=== PATIENT | female | born 1955 | race Caucasian/White ===

== ENCOUNTER → 2016-09-11 | Outpatient (CLI) | payer OTHER ==
--- NOTE | 2016-09-12 08:23 | MM ---
Reason for exam: screening (asymptomatic). Last mammogram was performed 1 year and 2 months ago. History: Patient is postmenopausal. 2 excisional biopsies of the left breast. 3 excisional biopsies of the right breast. Took estrogen for 1 month. Physical Findings: A clinical breast exam by your physician is recommended on an annual basis and results should be correlated with mammographic findings. MG Screening Mammo w CAD Bilateral CC and MLO view(s) were taken. Prior study comparison: June 30, 2015, bilateral MG screening mammo w CAD. April 15, 2014, bilateral MG screening mammo w CAD. The breast tissue is heterogeneously dense. This may lower the sensitivity of mammography. Developing asymmetry in the left breast seen on MLO view only middle depth central position. ASSESSMENT: Incomplete: need additional imaging evaluation, BI-RAD 0 RECOMMENDATION: Special view mammogram and ultrasound of the left breast. [facility] will attempt to contact patient to return for supplemental views and ultrasound.
== END | disposition home or self-care (01) ==
LOC: RADMAMWWP 10:02
PROVIDERS: ATTEND Family Medicine
DX: Z12.31 Encounter for screening mammogram for malignant neoplasm of breast (principal)

== ENCOUNTER → 2016-09-21 | Outpatient (CLI) | payer OTHER ==
--- NOTE | 2016-09-21 10:48 | MM ---
Reason for exam: additional evaluation requested from abnormal screening. Last mammogram was performed less than 1 month ago. History: Patient is postmenopausal. 2 excisional biopsies of the left breast. 3 excisional biopsies of the right breast. Took estrogen for 1 month. Physical Findings: Nurse did not find any significant physical abnormalities on exam. MG 3D Work Up W/Cad LT ML and spot compression MLO view(s) were taken of the left breast. Prior study comparison: September 11, 2016, bilateral MG screening mammo w CAD. June 30, 2015, bilateral MG screening mammo w CAD. No discrete abnormality including area of concern. No significant new findings when compared with previous films. These results were verbally communicated with the patient and result sheet given to the patient on 09/21/16. ASSESSMENT: Benign, BI-RAD 2 RECOMMENDATION: Return to routine screening mammogram schedule for both breasts.
== END ==
LOC: RADMAMWWP 09:53
PROVIDERS: ATTEND Family Medicine
DX: R92.8 Other abnormal and inconclusive findings on diagnostic imaging of breast (principal)
CPT/HCPCS: G0206; G0279

== ENCOUNTER → 2017-02-27 | Outpatient (CLI) | payer OTHER ==
[2017-02-27 08:26] LABS: ALT 28 U/L (9-52); AST 19 U/L (14-36); Alkaline Phosphatase 56 U/L (38-126); Anion Gap 11 mmol/L; Blood Urea Nitrogen 22 mg/dL (7-17); Calcium 9.4 mg/dL (8.4-10.2); Carbon Dioxide 28 mmol/L (22-30); Chloride 103 mmol/L (98-107); Cholesterol 138 mg/dL (<200); Glucose 99 mg/dL (74-99); HDL Cholesterol 58 mg/dL (40-60); Non-African American GFR(MDRD) >60 (>60 ml/min/1.73 sqM); Potassium 4.4 mmol/L (3.5-5.1); Sodium 142 mmol/L (137-145); Total Bilirubin 0.6 mg/dL (0.2-1.3); Total Protein 7.1 g/dL (6.3-8.2); Triglycerides 55 mg/dL (<150)
[2017-02-27 17:04] LABS: Urine Creatinine 78.5 mg/dL
== END | disposition home or self-care (01) ==
LOC: LABWHC1 06:55
PROVIDERS: ATTEND Internal Medicine Endocrinology, Diabetes & Metabolism
DX: E11.65 Type 2 diabetes mellitus with hyperglycemia (principal)
CPT/HCPCS: 36415; 80053; 80061; 82043; 82570; 83036

== ENCOUNTER → 2018-05-22 | Outpatient (CLI) | payer MEDICARE, OTHER ==
[2018-05-22 18:02] LABS: Albumin 4.1 g/dL (3.80-4.90); Albumin/Globulin Ratio 1.64 (1.20-2.10); Anion Gap 4.6 mmol/L (4.00-12.00); Calcium 8.9 mg/dL (8.7-10.3); Carbon Dioxide 28.4 mmol/L (21.6-31.8); Globulin 2.5 g/dL (2.1-3.7); LDL Cholesterol,Calculated 66.8 mg/dL (0.0-131.0); Potassium 4.1 mmol/L (3.5-5.5); Total Bilirubin 0.6 mg/dL (0.2-1.2); Total Protein 6.6 g/dL (6.2-8.2); VLDL Calculation 10.2 mg/dL (5.00-40.00)
[2018-05-22 19:12] LABS: Hemoglobin A1C 6.4 % (4.0-6.0)
== END | disposition home or self-care (01) ==
LOC: LABWHC1 06:42
PROVIDERS: ATTEND Internal Medicine Endocrinology, Diabetes & Metabolism
DX: E11.65 Type 2 diabetes mellitus with hyperglycemia (principal)
CPT/HCPCS: 36415; 80053; 80061; 82043; 82570; 83036

== ENCOUNTER → 2018-06-03 | Outpatient (CLI) | payer MEDICARE, OTHER ==
--- NOTE | 2018-06-03 14:46 | BD ---
EXAMINATION TYPE: Axial Bone Density DATE OF EXAM: 06/03/2018 COMPARISON: 04.03.2013 CLINICAL HISTORY: 63 YR OLD FEMALE....ICD-10 CODE: M81.0 OSTEOPOROSIS Height: 63.2 Weight: 136 FRAX RISK QUESTIONS: Family History (Parent hip fracture): YES Glucocorticoids (More than 3mos): YES Secondary Osteoporosis: YES 3. Menopause before 45: YES, AT 30 YRS OLD RISK FACTORS HISTORY OF: Family History of Osteoporosis: YES, GREAT GRANDMOTHER WITH BROKEN HIPS Active: YES Diet low in dairy products/other sources of calcium: YES Postmenopausal woman: YES, AT AGE 30, TOTAL HYST If Premenopausal, do you have irregular periods: IN THE PAST FOR FEW YRS ONLY MEDICATIONS: Prednisone or other steroids: YES, FOR ECZEMA, How Long: YRS Osteoporosis Medications: FOSAMAX IN THE PAST ONLY, LAST TAKEN IN 1993 Additional Medications: BP MEDS, VIT D, NO ORAL DIABETIC MEDS SINCE AUG 2017, CHOLESTEROL MEDS IN PAS T ONLY Additional History: DIABETIC, DIET ONLY EXAM MEASUREMENTS: Bone mineral densitometry was performed using the [employer] System. Bone mineral density as measured about the Lumbar spine is: ----- L1-L4(G/cm2): 0.862 T Score Values are as follows: ----- L1: -2.7 ----- L2: -2.7 ----- L3: -2.6 ----- L4: -2.7 ----- L1-L4: -2.6 Bone mineral density has: Decreased -7.3% since study of: 04.03.2013 Bone mineral density about the R hip (g/cm2): 0.771 Bone mineral density about the L hip (g/cm2): 0.769 T Score values are as follows: -----R Neck: -2.2 -----L Neck: -2.0 -----R Total: -1.9 -----L Total: -1.9 Bone mineral density has: Decreased -8.8% since study of: 04.03.2013 FRAX%s: THERE IS A 31.8% CHANCE FOR A MAJOR OSTEOPOROTIC FX AND A 4.0% FOR HIP FX.....PROBABILITY OF FX IN 10 YRS TIME IMPRESSION: 1. Osteoporosis lumbar spine. 2. Osteopenia of the bilateral femoral. NOTE: T-SCORE=SD OF THE YOUNG ADULT MEAN.
== END | disposition home or self-care (01) ==
LOC: RADBDWWP 09:54
PROVIDERS: ATTEND Internal Medicine Endocrinology, Diabetes & Metabolism
DX: M81.0 Age-related osteoporosis without current pathological fracture (principal); M85.851 Other specified disorders of bone density and structure, right thigh; M85.852 Other specified disorders of bone density and structure, left thigh
CPT/HCPCS: 77080

== ENCOUNTER → 2018-11-30 | Outpatient (CLI) | payer MEDICARE, OTHER ==
[2018-11-30 17:19] LABS: Albumin 4.2 g/dL (3.80-4.90); Anion Gap 8.2 mmol/L (4.00-12.00); Calcium 9.4 mg/dL (8.7-10.3); Carbon Dioxide 25.8 mmol/L (21.6-31.8); Globulin 2.1 g/dL (1.6-3.3); LDL Cholesterol,Calculated 84.6 mg/dL (0.0-131.0); Potassium 4.2 mmol/L (3.5-5.5); Total Bilirubin 0.6 mg/dL (0.2-1.2); Total Protein 6.3 g/dL (6.2-8.2); VLDL Calculation 13.4 mg/dL (5.00-40.00)
[2018-11-30 18:29] LABS: Hemoglobin A1C 6.4 % (4.0-6.0)
== END | disposition home or self-care (01) ==
LOC: LABWHC1 08:19
PROVIDERS: ATTEND Internal Medicine Endocrinology, Diabetes & Metabolism
DX: E11.9 Type 2 diabetes mellitus without complications (principal)
CPT/HCPCS: 36415; 80053; 80061; 82043; 82570; 83036; 84443

== ENCOUNTER → 2018-12-19 | Outpatient (CLI) | payer MEDICARE, OTHER ==
[~2018-12-19] MED LIST: DENOSUMAB 60 MG/ML 1 ML SYRINGE SQ ONE
[2018-12-19 12:59] VITALS: BP 148/75; PULSE 59; RESP 16; TEMP 97.8
== END | disposition home or self-care (01) ==
LOC: PROCWHC3 12:42
PROVIDERS: ATTEND Internal Medicine Endocrinology, Diabetes & Metabolism
DX: M81.0 Age-related osteoporosis without current pathological fracture (principal)
CPT/HCPCS: 96372; J0897

== ENCOUNTER → 2019-05-16 | Outpatient (CLI) | payer MEDICARE, OTHER ==
[2019-05-16 11:41] LABS: Albumin 4.4 g/dL (3.80-4.90); Anion Gap 6.6 mmol/L (4.00-12.00); Calcium 9.8 mg/dL (8.7-10.3); Carbon Dioxide 29.4 mmol/L (21.6-31.8); Chol/HDL Ratio 2.54; Globulin 2.2 g/dL (1.6-3.3); Total Bilirubin 0.6 mg/dL (0.3-1.2); Total Protein 6.6 g/dL (6.2-8.2)
[2019-05-16 12:53] LABS: Hemoglobin A1C 6.7 % (4.0-6.0)
== END | disposition home or self-care (01) ==
LOC: LABWHC1 06:37
PROVIDERS: ATTEND Internal Medicine Endocrinology, Diabetes & Metabolism
DX: E11.9 Type 2 diabetes mellitus without complications (principal)
CPT/HCPCS: 36415; 80053; 80061; 82043; 82570; 83036; 84443

== ENCOUNTER → 2019-07-08 | Outpatient (CLI) | payer MEDICARE, OTHER ==
[~2019-07-08] MED LIST changes: +DENOSUMAB 60 MG/ML 1 ML SYRINGE SQ NR; -DENOSUMAB 60 MG/ML 1 ML SYRINGE SQ ONE
[2019-07-08 11:36] VITALS: BP 123/60; PULSE 51; RESP 16; TEMP 98.2
== END ==
LOC: PROCWHC3 11:17
PROVIDERS: ATTEND Internal Medicine Endocrinology, Diabetes & Metabolism
DX: M81.0 Age-related osteoporosis without current pathological fracture (principal)
CPT/HCPCS: 96372; J0897

== ENCOUNTER → 2020-05-11 | Outpatient (CLI) | payer MEDICARE, OTHER ==
[2020-05-11 18:48] LABS: Hemoglobin A1C 6.9 % (4.0-6.0)
[2020-05-11 20:23] LABS: African American GFR (CKD) 88.4 (60.0-200.0); Albumin 4.2 g/dL (3.80-4.90); Albumin/Globulin Ratio 1.62 (1.60-3.17); Anion Gap 9.2 mmol/L (4.00-12.00); BUN/Creat Ratio 17.5 Ratio (12.00-20.00); Calcium 9.9 mg/dL (8.7-10.3); Carbon Dioxide 28.8 mmol/L (21.6-31.8); Chol/HDL Ratio 3.12; Globulin 2.6 g/dL (1.6-3.3); LDL Cholesterol,Calculated 92.4 mg/dL (0.0-131.0); Non-African American GFR(CKD) 76.3 (60.0-200.0); Potassium 4.1 mmol/L (3.5-5.5); Total Bilirubin 0.7 mg/dL (0.2-1.2); Total Protein 6.8 g/dL (6.2-8.2); VLDL Calculation 15.6 mg/dL (5.00-40.00)
[2020-05-11 21:43] LABS: Urine Creatinine 63.9 mg/dL
== END | disposition home or self-care (01) ==
LOC: LABWHC1 07:57
PROVIDERS: ATTEND Internal Medicine Endocrinology, Diabetes & Metabolism
DX: E11.9 Type 2 diabetes mellitus without complications (principal)
CPT/HCPCS: 36415; 80053; 80061; 82043; 82570; 83036; 84443

== ENCOUNTER → 2020-05-28 | Outpatient (CLI) | payer MEDICARE, OTHER ==
[2020-05-28 08:34] LABS: African American GFR (CKD) >90 (>60 ml/min/1.73 sqM); Blood Urea Nitrogen 20 mg/dL (7-17); Non-African American GFR(CKD) >90 (>60 ml/min/1.73 sqM)
--- NOTE | 2020-05-28 10:48 | FL ---
EXAMINATION TYPE: FL barium swallow DATE OF EXAM: 05/28/2020 CLINICAL HISTORY: Dysphagia. Constant throat clearing with irritation. TECHNIQUE: A double contrast esophagram is performed utilizing air and barium. A total of 22 second s of fluoroscopic time was utilized during procedure and 47 images obtained COMPARISON: CT neck performed earlier today FINDINGS: The esophagus shows normal motility and emptying into the stomach. Small sliding-type hiata l hernia present of study. No fixed hernia. No diverticulum. No intraluminal mass or stricture. No si gnificant gastroesophageal reflux was seen during real time performance of this study. Contrast from recent CT seen in collecting systems during real-time performance. IMPRESSION: Small sliding-type hiatal hernia otherwise unremarkable study.
--- NOTE | 2020-05-28 13:15 | CT ---
EXAMINATION TYPE: CT soft tissue neck w con DATE OF EXAM: 05/28/2020 9:22 AM COMPARISON: None HISTORY: Pain in throat, dysphagia Automated exposure control for dose reduction was used. CONTRAST: CT scan of neck is performed following with IV Contrast, patient injected with 100 mL of Isovue 300. Axial images are obtained, coronal and sagittal reformatted images are reviewed. FINDINGS: Airway: No gross abnormality seen. Parotid/submandibular glands: No gross abnormality seen. Carotid/Vascular Structures: Patent. Osseous Structures: Degenerative changes of the cervical spine. Other: Emphysematous changes of the lung apices. Visualized mastoid air cells are clear. No cervical lymphadenopathy. No focal fluid collections. Homogenous appearance of the thyroid gland. IMPRESSION: No evidence of airway narrowing or focal fluid collection.
== END | disposition home or self-care (01) ==
LOC: RADCTMAIN 07:54
PROVIDERS: ATTEND Otolaryngology
DX: K44.9 Diaphragmatic hernia without obstruction or gangrene (principal); R07.0 Pain in throat; R13.14 Dysphagia, pharyngoesophageal phase
CPT/HCPCS: 82565; 84520; 74220; 70491; 36415; Q9967

== ENCOUNTER → 2020-06-22 | Outpatient (CLI) | payer MEDICARE, OTHER ==
--- NOTE | 2020-06-22 18:15 | BD ---
EXAMINATION TYPE: Axial Bone Density DATE OF EXAM: 06/22/2020 COMPARISON: 06/03/2018 CLINICAL HISTORY: Postmenopausal screening Height: 5 FT 4IN Weight: 136 FRAX RISK QUESTIONS: Alcohol (3 or more units per day): NO Family History (Parent hip fracture): NO Glucocorticoids (More than 3mos): STEROID OINTMENT FOR ECZEMA (Ex: prednisone, prednisolone, methylprednisolone, dexamethasone, and hydrocortisone). History of Fracture in Adulthood: NO Secondary Osteoporosis: 1. Type 1 Diabetes: NO 2. Hyperthyroidism: NO 3. Menopause before 45: YES 4. Malnutrition: NO 5. Chronic liver disease: NO Rheumatoid Arthritis: NO Current Tobacco Use: NO RISK FACTORS HISTORY OF: Family History of Osteoporosis: YES Active: YES Diet low in dairy products/other sources of calcium: NO Postmenopausal woman: TOTAL HYST AGE 30 Take estrogen and/or progesterone medications: TOOK FOR THREE YEARS AFTER HYST NO LONGER TAKES Lost more than 2 inches in height since high school: NO MEDICATIONS: Additional Medications: LOSARTIN, WATER PILL Additional History: EXAM MEASUREMENTS: Bone mineral densitometry was performed using the [employer] System. Bone mineral density as measured about the Lumbar spine is: ----- L1-L4(G/cm2): 0.888 T Score Values are as follows: ----- L2: -2.8 ----- L3: -2.5 ----- L4: -1.8 ----- L1-L4: -2.4 Bone mineral density has: INCREASED 4.9 % since study of: 2017 Bone mineral density about the R hip (g/cm2): 0.745 Bone mineral density about the L hip (g/cm2): 0.748 T Score values are as follows: -----R Neck: -2.1 -----L Neck: -2.1 -----R Total: -1.8 -----L Total: -1.7 Bone mineral density has: INCREASED 2.1 % since study of: 2018 IMPRESSION: Osteoporosis (T Score less than -2.5). There is increased fracture risk and therapy is usually indicated based on age. Re-Screen 1-2 years. NOTE: T-SCORE=SD OF THE YOUNG ADULT MEAN.
== END | disposition home or self-care (01) ==
LOC: RADBDWWP 15:37
PROVIDERS: ATTEND Internal Medicine Endocrinology, Diabetes & Metabolism
DX: M81.0 Age-related osteoporosis without current pathological fracture (principal)
CPT/HCPCS: 77080

== ENCOUNTER → 2020-07-15 | Outpatient (CLI) | payer MEDICARE, OTHER ==
[2020-07-15 08:35] VITALS: BP 144/55; PULSE 58; RESP 16; TEMP 97.6
== END ==
LOC: PROCWHC3 08:24
PROVIDERS: ATTEND Internal Medicine Endocrinology, Diabetes & Metabolism
DX: M81.0 Age-related osteoporosis without current pathological fracture (principal)
CPT/HCPCS: 96372; J0897

== ENCOUNTER → 2020-08-25 | Outpatient (CLI) | payer MEDICARE, OTHER ==
--- NOTE | 2020-08-25 10:02 | CTL ---
EXAMINATION TYPE: CT Low Dose Lung DATE OF EXAM ORDERED: 08/25/2020 HISTORY: Long-term tobacco use. Lung cancer screening CT DLP: [address] CTDI: 1.76 mGy Automated exposure control for dose reduction was used. SCREENING VISIT: Initial study COMPARISON: None. TECHNIQUE: Low dose computed tomography scan was performed through the chest at 1 mm thick sections a nd reconstructed images in the coronal plane at [address] DIAGNOSTIC QUALITY: Satisfactory FINDINGS: LUNG NODULES: Present, detailed below: There is 3.3 x 2.0 cm inferior right upper lobe nodule abutting fissure axial image 156. There is a 8.4 x 4.5 cm nodule or nodular scarring right lower lobe axial image 170 LUNGS: COPD: Severity: Moderate Fibrosis: Severity: Mild Lymph nodes: No greater than 1 cm Other findings: None RIGHT PLEURAL SPACE: Effusion: None Calcification: None Thickening: None Pneumothorax: None LEFT PLEURAL SPACE: Effusion: None Calcification: None Thickening: None Pneumothorax: None HEART: Heart Size: Normal Coronary calcification: Mild to moderate Pericardial effusion: None. OTHER FINDINGS: Upper abdomen: There is large anechoic lesion laterally from upper pole right kidney favoring exophyt ic thin-walled cyst only partially imaged, correlate clinically. Bony thorax: Mild multilevel spurring. Supraclavicular region: None Other: None. IMPRESSION: Moderate emphysematous change. Few scattered small nodules. Most concerning is 8.4 x 4.5 mm right lower lobe nodule CT LUNG RAD AND CT CHEST RECOMMENDATION: Lung-Rad 3 Probably Benign: 6 month follow-up LDCT. S Modifier (other clinically significant findings): None
--- NOTE | 2020-08-25 10:47 | ECHOF ---
Referral Reason:I20.9 Angina pectoris, unspecified MEASUREMENTS -------- HEIGHT: 162.6 cm WEIGHT: 61.7 kg BP: RVIDd: 2.8 cm (< 3.3) IVSd: 0.9 cm (0.6 - 1.1) LVIDd: 4.5 cm (3.9 - 5.3) LVPWd: 1.1 cm (0.6 - 1.1) IVSs: 1.6 cm LVIDs: 2.8 cm LVPWs: 1.5 cm LAESV Index (A-L): 18.12 ml/m Ao Diam: 2.8 cm (2.0 - 3.7) AV Cusp: 1.9 cm (1.5 - 2.6) LA Diam: 3.3 cm (2.7 - 3.8) MV EXCURSION: 18.742 mm (> 18.000) MV EF SLOPE: 57 mm/s (70 - 150) EPSS: 0.8 cm MV E Guevara: 0.49 m/s MV DecT: 244 ms MV A Guevara: 0.92 m/s MV E/A Ratio: 0.53 AR PHT: 666 ms RAP: 5.00 mmHg RVSP: 24.47 mmHg FINDINGS -------- Sinus rhythm. This was a technically adequate study. The left ventricular size is normal. Left ventricular wall thickness is normal. Overall left vent ricular systolic function is low-normal with, an EF between 50 - 55 %. Normal LAP Grade 1 Diastolic Dysfunction. Basal inferior LV wall motion is hypokinetic. The right ventricle is normal in size. Normal LA size by volume 22+/-6 ml/m2. The right atrial size is normal. Interatrial and interventricular septum intact. The aortic valve is trileaflet and appears structurally normal. Trace amount of aortic regurgitatio n. The mitral valve is normal. Mild mitral regurgitation is present. The tricuspid valve appears structurally normal. Mild tricuspid regurgitation present. Right vent ricular systolic pressure is normal at < 35 mmHg. There is no pulmonic regurgitation present. The aortic root size is normal. Normal inferior vena cava with normal inspiratory collapse consistent with estimated right atrial pre ssure of 5 mmHg. There is no pericardial effusion. CONCLUSIONS -------- 1. Left ventricular wall thickness is normal. 2. Overall left ventricular systolic function is low-normal with, an EF between 50 - 55 %. 3. Normal LAP Grade 1 Diastolic Dysfunction. 4. Basal inferior LV wall motion is hypokinetic. 5. Trace amount of aortic regurgitation. 6. Mild mitral regurgitation is present. 7. Mild tricuspid regurgitation present. 8. There is no pericardial effusion. ORTHOPTIST: Shelby Hassan RDCS
--- NOTE | 2020-08-25 13:16 | EST ---
EXERCISE STRESS AGE: 65 SEX: Female HT: 5'4" WT: 136 lbs. PROTOCOL: Exercise Stress Test STAGE: 3 DURATION OF EXERCISE: 8:00 HEART RATE REST: 67 BLOOD PRESSURE REST: 153/78 MAXIMUM HEART RATE ACHIEVED: 138 MAXIMUM BLOOD PRESSURE: 217/84 85% MPHR: 130 100% MPHR: 153 METS: 9.7 INDICATIONS: Angina Pectoris CLINICAL INFORMATION: Baseline rhythm is sinus mechanism, rate of 67, normal axis and intervals, occasional PVCs with nonspecific ST-T wave changes. Baseline blood pressure 153/78 mmHg. Patient exercised on Fabricio protocol for 8 minutes reaching peak rate 138 beats per minute which is equal to 90% maximum predicted heart rate. Peak blood pressure 217/84 mmHg. Test was terminated secondary to fatigue. There was no chest pain. Electrocardiograph monitoring revealed frequent single PVCs. There was no evidence of diagnostic ischemic ST deviation. CONCLUSION: 1. Average exercise tolerance with no symptoms of chest pain. 2. Frequent single PVCs. 3. Nondiagnostic electrocardiograph stress testing secondary to baseline EKG abnormality. 4. If clinically indicated, an imaging stress test will be helpful. MMODL / IJN: [id number] /
== END | disposition home or self-care (01) ==
LOC: RADCTMAIN 08:18
PROVIDERS: ATTEND Family Medicine
DX: Z12.2 Encounter for screening for malignant neoplasm of respiratory organs (principal); R91.1 Solitary pulmonary nodule; Z87.891 Personal history of nicotine dependence; I49.3 Ventricular premature depolarization; I20.9 Angina pectoris, unspecified; I08.3 Combined rheumatic disorders of mitral, aortic and tricuspid valves
CPT/HCPCS: 71271; 93017; 93306

== ENCOUNTER → 2020-12-01 | Outpatient (CLI) | payer MEDICARE, OTHER ==
[2020-12-01 19:00] LABS: Hemoglobin A1C 7.2 % (4.0-6.0)
[2020-12-02 00:46] LABS: African American GFR (CKD) 76.7 (60.0-200.0); Albumin 4.3 g/dL (3.80-4.90); Albumin/Globulin Ratio 1.79 (1.60-3.17); Anion Gap 12.6 mmol/L (4.00-12.00); BUN/Creat Ratio 18.89 Ratio (12.00-20.00); Calcium 9.4 mg/dL (8.7-10.3); Carbon Dioxide 25.4 mmol/L (21.6-31.8); Chol/HDL Ratio 3.34; Globulin 2.4 g/dL (1.6-3.3); LDL Cholesterol,Calculated 95.4 mg/dL (0.0-131.0); Non-African American GFR(CKD) 66.2 (60.0-200.0); Total Bilirubin 0.8 mg/dL (0.2-1.2); Total Protein 6.7 g/dL (6.2-8.2); VLDL Calculation 14.6 mg/dL (5.00-40.00)
[2020-12-02 03:41] LABS: Urine Creatinine 108.5 mg/dL
== END | disposition home or self-care (01) ==
LOC: LABWHC1 07:20
PROVIDERS: ATTEND Internal Medicine Endocrinology, Diabetes & Metabolism
DX: E11.9 Type 2 diabetes mellitus without complications (principal)
CPT/HCPCS: 36415; 80053; 80061; 82043; 82570; 83036; 84443

== ENCOUNTER 2020-12-02 07:33 | Emergency (ER) | payer MEDICARE, OTHER ==
[2020-12-02 07:41] VITALS: TEMP 97.7
[2020-12-02 08:49] LABS: Basophils # (A) 0.1 k/uL (0-0.2); Basophils % (A) 1 %; Eosinophils # (A) 0.3 k/uL (0-0.7); Eosinophils % (A) 3 %; HCT 40.6 % (34.0-46.0); HGB 14.2 gm/dL (11.4-16.0); Lymphocytes # (A) 2.3 k/uL (1.0-4.8); Lymphocytes % (A) 31 %; MCV 85.7 fL (80.0-100.0); Mean Platelet Volume 7.2; Monocytes # (A) 0.6 k/uL (0-1.0); Monocytes % (A) 7 %; Neutrophils # (A) 4.1 k/uL (1.3-7.7); Neutrophils % (A) 55 %; Platelet Count 237 k/uL (150-450); RBC 4.73 m/uL (3.80-5.40); RDW 12.5 % (11.5-15.5); WBC 7.4 k/uL (3.8-10.6)
--- NOTE | 2020-12-02 08:50 | ED ---
General Adult HPI - General Chief complaint: Arrhythmia/Palpitations Stated complaint: Low Heart Rate Time Seen by Provider: 12/02/20 07:35 Source: patient, RN notes reviewed, old records reviewed Mode of arrival: ambulatory Limitations: no limitations - History of Present Illness Initial comments: This is a 65-year-old female presents emergency department coming in because her heart rate was very slow. Patient states she's been put on metoprolol for extra heartbeat ever since her heart rate is been extremely slow. Patient states she reduced it to half the dose in the morning and half at night and she woke up today and her heart rate was in the 30s and she came to the emergency department. Patient states she has been lightheaded but had no chest pain or difficulty breathing per patient denies any fever chills or cough. Patient denies any abdominal pain patient denies nausea vomiting diarrhea. Patient denies any swelling to legs or calf tenderness. - Related Data Home Medications Medication Instructions Recorded Confirmed Aspirin 81 tab PO HS 11/20/14 12/02/20 Cetirizine HCl [Zyrtec] 10 mg PO HS 11/20/14 12/02/20 Calcium Carbonate [Calcium] 1,200 mg PO HS 07/15/20 12/02/20 Cholecalciferol [Vitamin D3 (25 50 mcg PO DAILY 12/02/20 12/02/20 Mcg = 1000 Iu)] Hydrochlorothiazide 12.5 mg PO DAILY 12/02/20 12/02/20 [hydroCHLOROthiazide] Losartan Potassium 50 mg PO DAILY 12/02/20 12/02/20 Metoprolol Tartrate [Lopressor] 12.5 mg PO BID 12/02/20 12/02/20 Prolia Injection 1 dose SQ Q180D 12/02/20 12/02/20 Allergies Allergy/AdvReac Type Severity Reaction Status Date / Time adhesive Allergy Itching, Verified 12/02/20 08:27 RASH Review of Systems ROS Statement: Those systems with pertinent positive or pertinent negative responses have been documented in the HPI. ROS Other: All systems not noted in ROS Statement are negative. Past Medical History Past Medical History: Diabetes Mellitus, GI Bleed, Hypertension Additional Past Medical History / Comment(s): BLOOD IN STOOL/RECTUM. per old hx- anemia, migraines uti, PAST HIGER CHOLESTEROL BUT SINCE WATHED DIET NO LONGER HAS BEEN A PROBLEM. History of Any Multi-Drug Resistant Organisms: None Reported Past Surgical History: Adenoidectomy, Appendectomy, Heart Catheterization, Hysterectomy, Orthopedic Surgery, Tonsillectomy Additional Past Surgical History / Comment(s): OVARIAN CYSTS/endometreosis- hysterectomy. , ELBOW SURG for tendonitis, 2 TRIGGER FINGERS.colonoscopy. egd- NEG, rt carpal tunnel release, katelyn breast biopsies-NEG, d&c, heart cath 09-07-10 normal with ef. 60%.CYSTOCELE REPAIR. LATEST COLONOSCOPY APPROX 1.5 MONTHS AGO SHOWED PROCTITIS. Past Anesthesia/Blood Transfusion Reactions: Postoperative Nausea & Vomiting (PONV) Past Psychological History: No Psychological Hx Reported Smoking Status: Former smoker Past Alcohol Use History: None Reported Past Drug Use History: None Reported - Past Family History Mother Family Medical History: Dementia Additional Family Medical History / Comment(s): ALZHEIMERS Father Family Medical History: Diabetes Mellitus, Myocardial Infarction ([place]), Renal Disease General Exam - General Exam Comments Initial Comments: GENERAL: Patient is well-developed and well-nourished. Patient is nontoxic and well- hydrated and is in no acute distress. ENT: Neck is soft and supple. No significant lymphadenopathy is noted. Oropharynx is clear. Moist mucous membranes. Neck has full range of motion without eliciting any pain. EYES: The sclera were anicteric and conjunctiva were pink and moist. Extraocular movements were intact and pupils were equal round and reactive to light. Eyelids were unremarkable. PULMONARY: Unlabored respirations. Good breath sounds bilaterally. No audible rales rhonchi or wheezing was noted. CARDIOVASCULAR: Patient's heart rate is at about 40 beats a minute ABDOMEN: Soft and nontender with normal bowel sounds. No palpable organomegaly was noted. There is no palpable pulsatile mass. SKIN: Skin is clear with no lesions or rashes and otherwise unremarkable. NEUROLOGIC: Patient is alert and oriented x3. Cranial nerves II through XII are grossly intact. Motor and sensory are also intact. Normal speech, volume and content. Symmetrical smile. MUSCULOSKELETAL: Normal extremities with adequate strength and full range of motion. No lower extremity swelling or edema. No calf tenderness. LYMPHATICS: No significant lymphadenopathy is noted PSYCHIATRIC: Normal psychiatric evaluation. Limitations: no limitations Course Vital Signs 12/02/20 07:34 Temperature 97.7 F Pulse Rate 45 L Respiratory 18 Rate Blood Pressure 148/60 O2 Sat by Pulse 98 Oximetry Medical Decision Making - Medical Decision Making EKG shows sinus bradycardia at 30 bpm ID interval 164 QRS is 92 QT interval 470 QTC is 373. Patient's EKG shows no ST segment elevation or depression Chest x-ray shows no acute abnormality. Patient was asymptomatic throughout her ED stay. I spoke with Dr. Gregorio he was in agreement to follow-up the patient is an outpat ient patient and were also in agreement with this. Patient states when she came off the beta maribel the past her heart rate came right back up again the day so she was comfortable going home at this time and taking it easy. - Lab Data Result diagrams: 12/02/20 08:35 12/02/20 08:35 Lab Results 12/02/20 12/02/20 12/02/20 Range/Units 08:35 08:35 08:35 WBC 7.4 (3.8-10.6) k/uL RBC 4.73 (3.80-5.40) m/uL Hgb 14.2 (11.4-16.0) gm/dL Hct 40.6 (34.0-46.0) % MCV 85.7 (80.0-100.0) fL MCH 30.0 (25.0-35.0) pg MCHC 35.0 (31.0-37.0) g/dL RDW 12.5 (11.5-15.5) % Plt Count 237 (150-450) k/uL MPV 7.2 Neutrophils % 55 % Lymphocytes % 31 % Monocytes % 7 % Eosinophils % 3 % Basophils % 1 % Neutrophils # 4.1 (1.3-7.7) k/uL Lymphocytes # 2.3 (1.0-4.8) k/uL Monocytes # 0.6 (0-1.0) k/uL Eosinophils # 0.3 (0-0.7) k/uL Basophils # 0.1 (0-0.2) k/uL PT 10.4 (9.0-12.0) sec INR 1.0 (<1.2) APTT 22.3 (22.0-30.0) sec Sodium 138 (137-145) mmol/L Potassium 3.8 (3.5-5.1) mmol/L Chloride 103 (98-107) mmol/L Carbon Dioxide 26 (22-30) mmol/L Anion Gap 9 mmol/L BUN 19 H (7-17) mg/dL Creatinine 0.63 (0.52-1.04) mg/dL Est GFR (CKD-EPI)AfAm >90 (>60 ml/min/1.73 sqM) Est GFR (CKD-EPI)NonAf >90 (>60 ml/min/1.73 sqM) Glucose 147 H (74-99) mg/dL Calcium 9.5 (8.4-10.2) mg/dL Magnesium 1.8 (1.6-2.3) mg/dL Total Bilirubin 0.7 (0.2-1.3) mg/dL AST 19 (14-36) U/L ALT 13 (4-34) U/L Alkaline Phosphatase 41 (38-126) U/L Troponin I (0.000-0.034) ng/mL Total Protein 7.1 (6.3-8.2) g/dL Albumin 4.1 (3.5-5.0) g/dL TSH 1.080 (0.465-4.680) mIU/L 12/02/20 Range/Units 08:35 WBC (3.8-10.6) k/uL RBC (3.80-5.40) m/uL Hgb (11.4-16.0) gm/dL Hct (34.0-46.0) % MCV (80.0-100.0) fL MCH (25.0-35.0) pg MCHC (31.0-37.0) g/dL RDW (11.5-15.5) % Plt Count (150-450) k/uL MPV Neutrophils % % Lymphocytes % % Monocytes % % Eosinophils % % Basophils % % Neutrophils # (1.3-7.7) k/uL Lymphocytes # (1.0-4.8) k/uL Monocytes # (0-1.0) k/uL Eosinophils # (0-0.7) k/uL Basophils # (0-0.2) k/uL PT (9.0-12.0) sec INR (<1.2) APTT (22.0-30.0) sec Sodium (137-145) mmol/L Potassium (3.5-5.1) mmol/L Chloride (98-107) mmol/L Carbon Dioxide (22-30) mmol/L Anion Gap mmol/L BUN (7-17) mg/dL Creatinine (0.52-1.04) mg/dL Est GFR (CKD-EPI)AfAm (>60 ml/min/1.73 sqM) Est GFR (CKD-EPI)NonAf (>60 ml/min/1.73 sqM) Glucose (74-99) mg/dL Calcium (8.4-10.2) mg/dL Magnesium (1.6-2.3) mg/dL Total Bilirubin (0.2-1.3) mg/dL AST (14-36) U/L ALT (4-34) U/L Alkaline Phosphatase (38-126) U/L Troponin I <0.012 (0.000-0.034) ng/mL Total Protein (6.3-8.2) g/dL Albumin (3.5-5.0) g/dL TSH (0.465-4.680) mIU/L Disposition Clinical Impression: Sinus bradycardia, Medication reaction Disposition: HOME SELF-CARE Is patient prescribed a controlled substance at d/c from ED?: No Referrals: Patrick Gregorio DO [Primary Care Provider] - 1-2 days Time of Disposition: 09:49
--- NOTE | 2020-12-02 08:58 | XR ---
EXAMINATION TYPE: XR chest 2V DATE OF EXAM: 12/02/2020 COMPARISON: Chest x-ray January 27, 2015 HISTORY: Dysrhythmia. TECHNIQUE: Frontal and lateral views of the chest are obtained. FINDINGS: There is chronic parenchymal change without suspicious new focal air space opacity, pleura l effusion, or pneumothorax seen. The cardiac silhouette size is stable and within normal limits wit h atherosclerotic change aortic knob. The osseous structures are intact. IMPRESSION: Chronic changes without acute pulmonary process. No significant change from prior.
[2020-12-02 09:03] LABS: ALT 13 U/L (4-34); AST 19 U/L (14-36); African American GFR (CKD) >90 (>60 ml/min/1.73 sqM); Albumin 4.1 g/dL (3.5-5.0); Alkaline Phosphatase 41 U/L (38-126); Anion Gap 9 mmol/L; Blood Urea Nitrogen 19 mg/dL (7-17); Calcium 9.5 mg/dL (8.4-10.2); Carbon Dioxide 26 mmol/L (22-30); Chloride 103 mmol/L (98-107); Glucose 147 mg/dL (74-99); Magnesium 1.8 mg/dL (1.6-2.3); Non-African American GFR(CKD) >90 (>60 ml/min/1.73 sqM); Potassium 3.8 mmol/L (3.5-5.1); Sodium 138 mmol/L (137-145); Total Bilirubin 0.7 mg/dL (0.2-1.3); Total Protein 7.1 g/dL (6.3-8.2)
[2020-12-02 09:09] LABS: Partial Thromboplastin Time 22.3 sec (22.0-30.0); Prothrombin Time 10.4 sec (9.0-12.0)
[2020-12-02 10:24] VITALS: BP 128/68; PULSE 51; RESP 12
== END 2020-12-02 10:24 | disposition home or self-care (01) ==
LOC: EC 07:33
DX: R00.1 Bradycardia, unspecified (principal); T50.905A Adverse effect of unspecified drugs, medicaments and biological substances, initial encounter; I10 Essential (primary) hypertension; E11.9 Type 2 diabetes mellitus without complications; G43.909 Migraine, unspecified, not intractable, without status migrainosus; Z87.891 Personal history of nicotine dependence; Z79.82 Long term (current) use of aspirin
CPT/HCPCS: 36415; 71046; 80053; 83735; 84443; 84484; 85025; 85610; 85730; 93005; 99284

== ENCOUNTER → 2021-01-18 | Outpatient (CLI) | payer MEDICARE, OTHER ==
[2021-01-18 08:15] VITALS: BP 143/72; PULSE 52; RESP 16; TEMP 97.6
== END | disposition home or self-care (01) ==
LOC: PROCWHC3 07:52
PROVIDERS: ATTEND Internal Medicine Endocrinology, Diabetes & Metabolism
DX: M81.0 Age-related osteoporosis without current pathological fracture (principal)
CPT/HCPCS: 96372

== ENCOUNTER → 2021-06-17 | Outpatient (CLI) | payer MEDICARE, OTHER ==
[2021-06-17 11:44] LABS: Microalbumin Creatinine Ratio <30 mg/g Creat (0-30)
[2021-06-17 13:32] LABS: ALT 12 U/L (8-44); AST 13 U/L (13-35); African American GFR (CKD) 95.4 (60.0-200.0); Albumin 4.1 g/dL (3.8-4.9); Albumin/Globulin Ratio 1.65 (1.60-3.17); Alkaline Phosphatase 40 U/L (41-126); BUN/Creat Ratio 25.17 Ratio (12.00-20.00); Blood Urea Nitrogen 18.8 mg/dL (9.0-27.0); Calcium 9.2 mg/dL (8.7-10.3); Carbon Dioxide 25.3 mmol/L (21.6-31.8); Chloride 103 mmol/L (96-109); Chol/HDL Ratio 3.19 Ratio; Globulin 2.5 g/dL (1.6-3.3); Glucose 143 mg/dL (70-110); LDL Cholesterol,Calculated 91.7 mg/dL (0.0-131.0); Non-African American GFR(CKD) 82.3 (60.0-200.0); Potassium 4.2 mmol/L (3.5-5.5); Sodium 140 mmol/L (135-145); Total Protein 6.6 g/dL (6.2-8.2); VLDL Calculation 18.22 mg/dL (5.00-40.00)
== END | disposition home or self-care (01) ==
LOC: LABWHC1 07:10
PROVIDERS: ATTEND Internal Medicine Endocrinology, Diabetes & Metabolism
DX: E11.9 Type 2 diabetes mellitus without complications (principal)
CPT/HCPCS: 36415; 80053; 80061; 82043; 82570; 83036; 84443

== ENCOUNTER → 2021-08-26 | Outpatient (CLI) | payer MEDICARE, OTHER ==
[2021-08-26 08:05] VITALS: BP 154/87; PULSE 55; RESP 16; TEMP 98.2
== END ==
LOC: PROCWHC3 07:54
PROVIDERS: ATTEND Internal Medicine Endocrinology, Diabetes & Metabolism
DX: M81.0 Age-related osteoporosis without current pathological fracture (principal); Z87.891 Personal history of nicotine dependence; Z91.048 Other nonmedicinal substance allergy status; Z88.8 Allergy status to other drugs, medicaments and biological substances
CPT/HCPCS: 96372; J0897

== ENCOUNTER → 2022-06-23 | Outpatient (CLI) | payer MEDICARE, OTHER ==
--- NOTE | 2022-06-23 09:35 | BD ---
EXAMINATION TYPE: Axial Bone Density DATE OF EXAM: 06/23/2022 COMPARISON: 06-22-20 CLINICAL HISTORY: 67 years year old Female. ICD-10 CODE: M81.0 AGE-RELATED OSTEOPOROSIS W/O CURRENT PATHOLO Height: 64in Weight: 136LB FRAX RISK QUESTIONS: Secondary Osteoporosis: 3. Menopause before 45: YES RISK FACTORS HISTORY OF: Family History of Osteoporosis: YES Active: YES Postmenopausal woman: YES Take estrogen and/or progesterone medications: A FEW YEARS AFTER HYSTERECTOMY AT AGE 30, NONE CURRENT MEDICATIONS: Osteoporosis Medications: Which medication: Prolia How Lon-5 YEARS Additional Medications: METFORMIN, CALCIUM, VITAMIN, BP MED Additional History: EXAM MEASUREMENTS: Bone mineral densitometry was performed using the [employer] System. Bone mineral density as measured about the Lumbar spine is: ----- L1-L4(G/cm2): 0.910 T Score Values are as follows: ----- L1: -2.6 ----- L2: -2.3 ----- L3: -1.9 ----- L4: -2.3 ----- L1-L4: -2.2 Bone mineral density has: Increased 1.6% since study of: 06-22-20 Bone mineral density about the R hip (g/cm2): 0.771 Bone mineral density about the L hip (g/cm2): 0.779 T Score values are as follows: -----R Neck: -2.0 -----L Neck: -1.8 -----R Total: -1.9 -----L Total: -1.8 Bone mineral density has: Decreased -1.4% since study of: 06-22-20 FRAX%s: The graph provided illustrates a 8.7% chance for a major osteoporotic fx and a 2.7% chance fo r the hips probability for fx in 10 years time. IMPRESSION: Osteopenia (T Score between -2.5 and -1). There is slightly increased risk of fracture and the patient may be considered for treatment. Re-Screen 2-5 years. NOTE: T-SCORE=SD OF THE YOUNG ADULT MEAN.
== END | disposition home or self-care (01) ==
LOC: RADBDWWP 08:33
PROVIDERS: ATTEND Internal Medicine Endocrinology, Diabetes & Metabolism
DX: M85.89 Other specified disorders of bone density and structure, multiple sites (principal); Z78.0 Asymptomatic menopausal state
CPT/HCPCS: 77080

== ENCOUNTER → 2022-07-06 | Outpatient (CLI) | payer MEDICARE, OTHER ==
--- NOTE | 2022-07-06 18:44 | CT ---
EXAMINATION TYPE: CT abdomen pelvis wo con DATE OF EXAM: 07/06/2022 HISTORY: R flank pain. poss kidney stone CT DLP: 293.90 mGycm. Automated Exposure Control for Dose Reduction was Utilized. TECHNIQUE: CT scan of the abdomen and pelvis is performed without oral or IV contrast. COMPARISON: None FINDINGS: Limitation: Within the limitations of a non-contrast study, the following observations are made. LUNG BASES: No acute findings. LIVER/GB: No significant abnormality is appreciated. PANCREAS: No significant abnormality is seen. SPLEEN: No significant abnormality is seen. ADRENALS: No significant abnormality is seen. KIDNEYS AND URETERS/BLADDER: There is no hydronephrosis or hydroureter. No renal calcifications. Ther e is a 7.5 cm simple appearing right renal cyst located in the upper and midpole. 1.5 cm lower pole s imple appearing cyst. There is a 1 cm hyperdense focus in the posterior parenchyma of the left upper pole, presumably hyperdense cyst. * These findings can be further characterized with either views of an old CT at outside institution for comparison/stability, or follow-up dedicated CT or MRI renal protocol without and with contrast. BOWEL: No significant abnormality is seen. No acute findings. LYMPH NODES: No greater than 1cm abdominal or pelvic lymph nodes are appreciated. OTHER SITES MISCELLANEOUS: No acute findings. OSSEOUS STRUCTURES: No significant abnormality is seen. IMPRESSION: 1. No renal stones or hydronephrosis is seen bilaterally. 2. 7.5 cm right renal cyst. 3. Coronary calcifications.
== END | disposition home or self-care (01) ==
LOC: RADCTMAIN 17:53
PROVIDERS: ATTEND Family Medicine
DX: N28.1 Cyst of kidney, acquired (principal); I25.10 Atherosclerotic heart disease of native coronary artery without angina pectoris
CPT/HCPCS: 74176

== ENCOUNTER → 2022-07-17 | Outpatient (CLI) | payer MEDICARE, OTHER ==
[2022-07-17 12:21] LABS: ALT 12 U/L (8-44); AST 16 U/L (13-35); African American GFR (CKD) 104.8 (60.0-200.0); Albumin 4.2 g/dL (3.8-4.9); Albumin/Globulin Ratio 1.53 (1.60-3.17); Alkaline Phosphatase 50 U/L (41-126); BUN/Creat Ratio 32.11 Ratio (12.00-20.00); Calcium 9.3 mg/dL (8.7-10.3); Carbon Dioxide 25.2 mmol/L (20.0-27.5); Chloride 103 mmol/L (96-109); Chol/HDL Ratio 2.93 Ratio; Globulin 2.7 g/dL (1.6-3.3); Glucose 139 mg/dL (70-110); LDL Cholesterol,Calculated 83.7 mg/dL (0.0-131.0); Non-African American GFR(CKD) 90.4 (60.0-200.0); Sodium 139 mmol/L (135-145); Total Protein 6.9 g/dL (6.2-8.2); VLDL Calculation 13.12 mg/dL (5.00-40.00)
[2022-07-17 14:00] LABS: Microalbumin Creatinine Ratio <30 mg/g Creat (0-30); Urine Creatinine 82.3 mg/dL (28.0-217.0)
== END | disposition home or self-care (01) ==
LOC: LABWHC1 07:23
PROVIDERS: ATTEND Internal Medicine Endocrinology, Diabetes & Metabolism
DX: E11.65 Type 2 diabetes mellitus with hyperglycemia (principal); M81.0 Age-related osteoporosis without current pathological fracture
CPT/HCPCS: 36415; 80053; 80061; 82043; 82306; 82523; 82570; 83036; 83970; 84443

== ENCOUNTER → 2023-12-10 | Outpatient (CLI) | payer MEDICARE, OTHER ==
[2023-12-10 09:50] LABS: INR 0.9 (<1.2); Partial Thromboplastin Time 22.8 sec (22.0-30.0); Prothrombin Time 10.2 sec (10.0-12.5)
[2023-12-10 14:34] LABS: HCT 41.6 % (37.2-46.3); HGB 13.6 g/dL (12.0-15.0); MCH 29.1 pg (27.0-32.0); MCHC 32.7 g/dL (32.0-37.0); MCV 88.9 FL (80.0-97.0); Mean Platelet Volume 10.6 FL (9.5-12.2); NRBC Per 100 WBC 0 X 10*3/uL (0.00-0.01); Platelet Count 266 X 10*3/uL (140-440); RBC 4.68 X 10*6/uL (4.10-5.20); WBC 8.59 X 10*3/uL (4.50-10.00)
[2023-12-10 14:51] LABS: ALT 18 U/L (8-44); AST 18 U/L (13-35); Albumin 4.4 g/dL (3.8-4.9); Albumin/Globulin Ratio 1.69 Ratio (1.60-3.17); Alkaline Phosphatase 52 U/L (41-126); Blood Urea Nitrogen 15.9 mg/dL (9.0-27.0); Calcium 9.9 mg/dL (8.7-10.3); Carbon Dioxide 19.5 mmol/L (21.6-31.8); Chloride 103 mmol/L (96-109); Globulin 2.6 g/dL (1.6-3.3); Glucose 186 mg/dL (70-110); Potassium 4.3 mmol/L (3.5-5.5); Sodium 138 mmol/L (135-145); Total Bilirubin 0.3 mg/dL (0.3-1.2)
== END | disposition home or self-care (01) ==
LOC: LABPAT 08:41
PROVIDERS: ATTEND Orthopaedic Surgery
DX: Z01.818 Encounter for other preprocedural examination (principal); I49.9 Cardiac arrhythmia, unspecified; M16.12 Unilateral primary osteoarthritis, left hip; J44.9 Chronic obstructive pulmonary disease, unspecified; E11.9 Type 2 diabetes mellitus without complications; R94.31 Abnormal electrocardiogram [ECG] [EKG]; R00.1 Bradycardia, unspecified; Z22.322 Carrier or suspected carrier of Methicillin resistant Staphylococcus aureus
CPT/HCPCS: 36415; 80053; 83036; 85027; 85610; 85730; 86850; 86900; 86901; 87070; 93005

== ENCOUNTER 2023-12-14 05:44 | Day surgery (SDC) | payer MEDICARE, OTHER ==
[2023-12-14] MEDS ORDERED: TRANEXAMIC 1,000 MG/100ML-NACL 1,000 MG in SALINE 1 100ML.BAG IVPB PRN (06:00)
[2023-12-14] MEDS ORDERED: TRANEXAMIC 1,000 MG/100ML-NACL 1,000 MG in SALINE 1 100ML.BAG IV PRN (06:00)
[2023-12-14] MEDS: LACTATED RINGERS 1,000 ML IV SCH ×2 (06:12→21:57)
[2023-12-14] MEDS: oxyCODONE ER 10 MG TAB.ER.12H PO PRN (06:31)
[2023-12-14] MEDS: ACETAMINOPHEN TAB 500 MG TAB PO PRN (06:31)
[2023-12-14] MEDS: FAMOTIDINE 20 MG/2 ML VIAL IVP PRN (06:31)
[2023-12-14] MEDS: KETOROLAC 15 MG/ML 1 ML VIAL IVP PRN (06:31)
[2023-12-14] MEDS: ONDANSETRON 4 MG/2 ML VIAL IVP PRN ×2 (06:31→15:54)
[2023-12-14] MEDS: DOCUSATE 100 MG CAP PO PRN (06:31)
[2023-12-14] MEDS: DEXAMETHASONE SOD PHOSPHATE 10 MG/ML 1 ML VIAL IV PRN (06:31)
[2023-12-14 06:56] LABS: Glucose,Whole Blood 131 mg/dL (70-110)
[2023-12-14] MEDS ORDERED: HYDROmorphone 0.5 MG/0.5 ML SYRINGE IVP PRN ×4 (07:00→09:27)
[2023-12-14] MEDS: fentaNYL (PF) 50 MCG/ML 2 ML AMP IVP ONE (07:08)
[2023-12-14] MEDS: MIDAZOLAM 2 MG/2 ML VIAL IVP ONE (07:08)
[2023-12-14] MEDS ORDERED: ePHEDrine 50 MG/ML 1 ML VIAL ONE (07:28)
[2023-12-14] MEDS ORDERED: ROPIVACAINE 5 MG/ML 30 ML VIAL ONE (07:28)
[2023-12-14] MEDS ORDERED: SUCCINYLCHOLINE CHLORIDE 200 MG/10 ML VIAL IV ONE (07:28)
[2023-12-14] MEDS ORDERED: GLYCOPYRROLATE 0.2 MG/ML 2 ML VIAL ONE (07:28)
[2023-12-14] MEDS ORDERED: ROCURONIUM 10 MG/ML (5 ML VIAL) IV ONE (07:28)
[2023-12-14] MEDS ORDERED: fentaNYL (PF) 50 MCG/ML 2 ML AMP ONE (07:28)
[2023-12-14] MEDS ORDERED: PROPOFOL 10 MG/ML 20 ML VIAL IV ONE (07:28)
[2023-12-14] MEDS ORDERED: NEOSTIGMINE 1 MG/ML 10 ML VIAL ONE (07:28)
[2023-12-14] MEDS ORDERED: LIDOCAINE 1% INJ 10MG/ML (20 ML MDV) ONE (07:28)
[2023-12-14] MEDS ORDERED: TRANEXAMIC 1,000 MG/100ML-NACL PREMIX BAG ONE (07:28)
[2023-12-14 07:37] VITALS: RESP 16
[2023-12-14] MEDS: ROPIVACAINE/EPI/CLONIDINE/KET 50 ML SYRINGE MISCELLANE PRN (08:27)
[2023-12-14] MEDS: LACTATED RINGERS 1,000 ML IV ONE ×2 (08:45→13:30)
[2023-12-14] MEDS ORDERED: MAGNESIUM HYDROXIDE 2,400 MG/30 ML CUP PO PRN (09:27)
[2023-12-14] MEDS ORDERED: ACETAMINOPHEN TAB 325 MG TAB PO PRN (09:27)
[2023-12-14] MEDS ORDERED: traMADol 50 MG TAB PO PRN (09:27)
[2023-12-14] MEDS ORDERED: NALOXONE 0.4 MG/ML 1 ML VIAL IV PRN (09:27)
--- NOTE | 2023-12-14 09:39 | P.ANPRN ---
Procedure Note - Anesthesia - Nerve Block Performed Left Gerardo Single Time Out Performed: Yes ([id number]) Date of Procedure: 12/14/23 Procedure Start Time: :08 Procedure Stop Time: 07:11 Location of Patient: PreOp Indication: Acute Post-Operative Pain, Requested by Surgeon Specifically requested for management of pain by DrSaqib: Ji Welch Sedation Type: Sedate with meaningful contact maintained Preparation: Sterile Prep Position: Supine Catheter: None Needle Types: Pajunk Needle Gauge: 21 Ultrasound used to visualize needle placement: Yes Ultrasound used to observe medication spread: Yes Injectate: 0.5% Ropivacaine (see comment for volume) (30cc) Blood Aspirated: No Pain Paresthesia on Injection Noted: No Resistance on Injection: Normal Image Stored and Saved: Yes Events: Uneventful and Well Tolerated
--- NOTE | 2023-12-14 09:50 | P.OP ---
Date of Procedure: 12/14/23 Preoperative Diagnosis: Severe Left Hip Arthritis Postoperative Diagnosis: Same Procedure(s) Performed: Left direct anterior total hip arthroplasty Implants: 1. Stephen Trident II Acetabular Cup, Size #50 2. Surrency Insignia Size # 4 Femoral Stem, High Offset 3. Biolox delta femoral head, 36 mm, +0 mm neck Anesthesia: KATIEA, regional Surgeon: Ji Welch Filter Changing Technician #1: Fitz Gipson Estimated Blood Loss (ml): 200 IV fluids (ml): 800 Pathology: none sent Condition: stable Disposition: PACU Indications for Procedure: I had a long discussion with the patient in the office on the potential risks and complications of an elective total hip replacement through a direct anterior approach. Risks discussed include, but are certainly not limited to, risks from anesthesia, superficial infection requiring local wound care or antibiotics, deep dago-prosthetic joint infection and the treatment required to eradicate infection, intraoperative fracture, postoperative periprosthetic fracture, damag e to local blood vessels or nerves particularly the lateral femoral cutaneous nerve, delayed wound healing requiring local wound care or possibly surgical debridement, hip dislocation, leg length discrepancy, soft tissue irritation around the total hip implant such as iliopsoas tendinitis or trochanteric bursitis, wear and osteolysis from the implants, squeaking or audible noises, groin pain, thigh pain, heterotopic ossification, stiffness, aseptic loosening of the implants, dissatisfaction with surgical outcome, need for revision surgery, DVT, PE, swelling of the operative extremity, acute coronary event, stroke, failure to thrive, and possibly loss of life or limb. The patient understands that while these are the most common complications after an elective hip replacement there are certainly other less common complications possible. They were given ample time to ask questions regarding the potential complications of a hip replacement. Following our discussion the patient provided their verbal and written consent to go forward with an elective total hip replacement. Operative Findings: Severe full-thickness cartilage loss in the femoral head and acetabulum. Large clear effusion. Description of Procedure: The patient was identified in the preoperative holding area and the correct hip was marked with my initials. I reviewed the procedure and consent with the patient. All of their questions were answered. The patient was then brought back into the operating room by anesthesia. While on the [facility] anesthesia was administered by the anesthesia team. Preoperative antibiotics and tranexamic acid were also given. After the patient was under anesthesia I examined their ankles to determine their preoperative leg length discrepancy. The skin over the anterior aspect of the hip was shaved to remove hair over the site of planned incision. Both feet and ankles were padded with webril and boots for the [place] were applied. The patient was then carefully transferred onto the [place] table. A perineal post was immediately placed. The arms were placed on arm holders and were well-padded. Both boots were secured to the spars on the [place] table. The patient was positioned so that the pelvis was centered over the post. Nonsterile drapes were applied. A timeout was performed identifying the correct patient, operative extremity, and procedure. At this point fluoroscopy was brought in to take preoperative images of the pelvis and operative hip. Using the standing AP pelvis from the office as a template, a comparable image was obtained with fluoroscopy. A metallic bar was used to create a bi-ischial line for use as a reference to leg length adjustments during the procedure. Global offset was also measured on both the operative and nonoperative leg. Fluoroscopy was then brought out and a pre-scrub using a chlorhexidine scrub brush was performed. The operative limb was then prepped and draped in the [facility] sterile fashion. An anterior longitudinal incision was made lateral and distal to the ASIS. The skin and subcutaneous tissues were incised sharply. The underlying tensor fascia was identified and incised in its midportion. The fascia was dissected free from the underlying muscle and the muscle belly was retracted. A blunt tipped cobra retractor was placed over the superior neck under the muscle fibers of the gluteus minimus. The deep enveloping fascia of the tensor was incised. The anterior leash of vessels were then identified and cauterized. The fascia between the rectus and the capsule was then incised and the pre-capsular fat was excised. A second Cobra was placed inferior to the neck. The interval between the rectus and iliocapsularis and the hip capsule was developed and a retractor was placed carefully over the anterior rim of the acetabulum. A T-shaped anterior capsulotomy was performed. The superior capsular leaflet was left in place in the inferior capsular flap was excised. The Cobra retractors were placed intracapsularly. We then made a femoral neck osteotomy according to preoperative and intraoperative templating and confirmed the level of the oste otomy using fluoroscopic imaging. The femoral head was removed, passed off to the back table, and sized. The superior capsular flap was excised. Retractors were placed circumferentially exposing the acetabulum. We then circumferentially debrided the acetabulum free of labrum and osteophytes. The pulvinar was removed to fully visualize the cotyloid fossa. We then sequentially reamed to achieve peripheral fit and excellent bleeding subchondral bone. The socket was thoroughly irrigated. The acetabular component was impacted into the appropriate position using fluoroscopy to guide version, inclination, and depth of insertion taking care to have a comparable image of the AP pelvis to the standing image taken in the office. An excellent press-fit was achieved and final position was confirmed using fluoroscopy. The press fit was augmented with bony cancellus dome screws. The liner was then impacted into the socket. Attention was then turned to the femur. The remnant dorsal lateral capsule was excised. The short external rotators were visible and protected. A bone hook was used to confirm appropriate translation of the trochanter away from the acetabulum. The leg was then extended and adducted and the bone hook was used to elevate the femur for broaching. A box osteotome and blunt tipped canal sound was then utilized to gain access to the femoral canal. We then tim preston broached the femur in appropriate anteversion until excellent torsional stability was achieved. The neck cut was brought flush to the trial broach with a calcar planar. A trial neck and head were then placed onto the broach and the hip was atraumatically reduced under direct visualization. External rotation to 90 was performed to assess stability. Fluoroscopy was brought in. An AP and lateral fluoroscopic image of the proximal femur was obtained to assess position and fill of the trial broach. An AP of the pelvis was then obtained and matched to the preoperative image taken. A bi-ischial bar was then placed and measurements were taken to assess changes in length and offset. The hip was then carefully dislocated, the proximal femur was exposed, and the trial implants were removed. The wound and proximal femur was thoroughly irrigated using sterile saline and pulsatile lavage. The final femoral implant was dispensed and gently tapped into place generating an excellent press-fit. The trunnion was cleansed and the final head was tapped into place to engage the Holloway taper. The acetabulum was irrigated and visualized to be free of debris. The hip was carefully reduced. Stability was checked clinically with external rotation to 90 and there was no evidence of instability. Final fluoroscopic images were taken. The wound was then thoroughly irrigated and soaked with a dilute Betadine rinse for 3 minutes. 3 L of sterile saline was irrigated through the wound using pulsatile lavage. Local anesthetic cocktail was injected into the soft tissues around the surgical field. The wound was then closed in layers. A sterile dressing was placed over the surgical incision. The drapes were taken down and the patient was carefully transferred off of the [place] table. Following removal of the boots the leg lengths felt acceptable. The patient was then taken to recovery room having tolerated the procedure well. Fitz Gipson PA-C was required as a skilled academic support assistant due the complexity of surgery for patient positioning, draping, exposure, retraction, closure of wound, and application of dressing PLAN: The patient can weight-bear as tolerated on the operative extremity. DVT prophylaxis with aspirin 81 mg twice a day based on preoperative risk stratification. Physical therapy for gait training. Leave surgical dressing in place. Internal medicine for perioperative medical management.
[2023-12-14] MEDS: HYDROmorphone 0.5 MG/0.5 ML SYRINGE IVP ONE (10:18)
--- NOTE | 2023-12-14 10:22 | FL ---
EXAMINATION TYPE: FL guidance operating room, XR Hip Limited LT Intraoperative/procedural fluoroscopi c services were provided. Total fluoroscopy time is 38 seconds with a total of 7 submitted images to PACS. Please see the operative/procedural note for further details. DAP: 2.003 Gycm2
[2023-12-14 11:23] LABS: Glucose,Whole Blood 274 mg/dL (70-110)
[2023-12-14] MEDS: INSULIN ASPART (NovoLOG) 100 UNIT/ML VIAL SQ ONE (11:27)
[2023-12-14 12:20] LABS: Glucose,Whole Blood 227 mg/dL (70-110)
[2023-12-14] MEDS: HYDROmorphone 0.5 MG/0.5 ML SYRINGE SQ ONE (12:48)
[2023-12-14] MEDS: HYDROcodone/APAP 7.5-325MG 1 EACH TAB PO PRN (14:38)
[2023-12-14 15:18] LABS: Glucose,Whole Blood 172 mg/dL (70-110)
[2023-12-14 19:47] LABS: Glucose,Whole Blood 253 mg/dL (70-110)
[2023-12-14] MEDS: SENNOSIDES-DOCUSATE SODIUM 1 EACH TAB PO SCH (21:03)
[2023-12-14] MEDS: ASPIRIN 81 MG PO SCH (21:03)
[2023-12-14] MEDS ORDERED: LORATADINE 10 MG TAB PO PRN (23:01)
[2023-12-14] MEDS: metFORMIN 500 MG TAB PO SCH (23:42)
[2023-12-15] MEDS: HYDROcodone/APAP 7.5-325MG 1 EACH TAB PO PRN (01:37)
[2023-12-15 06:50] LABS: Glucose,Whole Blood 142 mg/dL (70-110)
[2023-12-15] MEDS: INSULIN ASPART (NovoLOG) 100 UNIT/ML VIAL SQ SCH (06:57)
[2023-12-15] MEDS: FAMOTIDINE 20 MG TAB PO SCH (08:05)
[2023-12-15] MEDS: MULTIVITAMINS, THERA 1 EACH TAB PO SCH (08:05)
--- NOTE | 2023-12-15 08:43 | P.DS ---
Providers Date of admission: 12/14/2023 Attending physician: Ji Welch Consults: 12/14/23 09:27 Consult Physician Routine Consulting Provider: Patrick Gregorio Consult Reason/Comments: post op medical management Do you want consulting provider notified?: Yes Primary care physician: Patrick Gregorio [facility] Course: The patient is a very pleasant 68-year-old female who was admitted under my care yesterday and underwent uncomplicated total hip replacement. The patient was admitted to the orthopedic floor following surgery. The patient received 2 doses of postoperative antibiotics. She was transitioned from IV to oral pain medication. She worked with physical therapy and did well. I saw the patient on postoperative day #1 and she was doing well. She had mild discomfort in her hip. Her dressing was intact with no drainage or strike through. There is moderate swelling in the thigh and some early bruising. Femoral nerve function was intact. She is able to actively plantarflex and dorsiflex her ankle and her toes. She was doing well and requested to be discharged home. A consultation was placed postoperatively to internal medicine. Plan - Discharge Summary Discharge Rx Participant: No New Discharge Prescriptions: New Aspirin 81 mg PO BID #60 tab Omeprazole 40 mg PO DAILY #30 cap HYDROcodone/APAP 5-325MG [[place] 5-325] 1 - 2 tab PO Q6HR PRN #32 tab PRN Reason: Pain Docusate [Colace] 100 mg PO BID #60 capsule Diclofenac Sodium [Voltaren] 75 mg PO BID #60 tab Doxycycline Monohydrate 100 mg PO BID #28 cap No Action Cetirizine HCl [Zyrtec] 10 mg PO HS Aspirin 162 tab PO HS Calcium Carbonate [Calcium] 1,200 mg PO HS hydroCHLOROthiazide 12.5 mg PO DAILY Cholecalciferol [Vitamin D3 (25 Mcg = 1000 Iu)] 50 mcg PO DAILY Losartan Potassium 50 mg PO DAILY Prolia Injection 1 dose SQ Q180D metFORMIN HCL 1,000 mg PO BID Discharge Medication List Aspirin 162 tab PO HS 11/20/14 [History] Cetirizine HCl [Zyrtec] 10 mg PO HS 11/20/14 [History] Calcium Carbonate [Calcium] 1,200 mg PO HS 07/15/20 [History] Cholecalciferol [Vitamin D3 (25 Mcg = 1000 Iu)] 50 mcg PO DAILY 05/06/21 [History] Losartan Potassium 50 mg PO DAILY 12/02/20 [History] Prolia Injection 1 dose SQ Q180D 12/02/20 [History] hydroCHLOROthiazide 12.5 mg PO DAILY 12/02/20 [History] metFORMIN HCL 1,000 mg PO BID 04/20/23 [History] Aspirin 81 mg PO BID #60 tab 12/14/23 [Rx] Diclofenac Sodium [Voltaren] 75 mg PO BID #60 tab 12/14/23 [Rx] Docusate [Colace] 100 mg PO BID #60 capsule 12/14/23 [Rx] HYDROcodone/APAP 5-325MG [[place] 5-325] 1 - 2 tab PO Q6HR PRN #32 tab 12/14/23 [Rx] Omeprazole 40 mg PO DAILY #30 cap 12/14/23 [Rx] Doxycycline Monohydrate 100 mg PO BID #28 cap 12/15/23 [Rx] Follow up Appointment(s)/Referral(s): Ji Welch MD [Medical Doctor] - 2 Weeks Activity/Diet/Wound Care/Special Instructions: 1. Weight-bear as tolerated on your operative extremity unless instructed otherwise. Use a walker or other assistive device to ambulate. 2. Leave surgical dressing in place. If your dressing becomes saturated with blood, there is drainage, or the dressing becomes loose please contact the office. 3. It is okay to shower with your surgical dressing, but do not submerge in water (no hot tubs, bath's, swimming etc.) 4. Make sure to take her blood clot prevention medication as prescribed (aspirin, Eliquis, Xarelto, and Plavix are commonly prescribed medications for blood clot prevention) 5. While taking [place] or Percocet for pain make sure you're taking a stool softener (Colace) and drink lots of water. 6. Keep all follow-up appointments as scheduled. You will usually be seen in 1-2 weeks following surgery. 7. Please contact the office with any questions or concerns [phone] Discharge Disposition: HOME WITH HOME HEALTH SERVICES
[2023-12-15 09:34] VITALS: BP 111/65; PULSE 84; TEMP 97.2
[2023-12-15 09:37] LABS: Basophils # (A) 0.02 X 10*3/uL (0.00-0.10); Basophils % (A) 0.1 %; Eosinophils # (A) 0 X 10*3/uL (0.04-0.35); Eosinophils % (A) 0 %; HCT 28.6 % (37.2-46.3); HGB 9.5 g/dL (12.0-15.0); Lymphocytes # (A) 1.77 X 10*3/uL (0.90-5.00); Lymphocytes % (A) 13.2 %; MCH 29.1 pg (27.0-32.0); MCHC 33.2 g/dL (32.0-37.0); MCV 87.5 FL (80.0-97.0); Mean Platelet Volume 10.4 FL (9.5-12.2); Monocytes # (A) 1.28 X 10*3/uL (0.20-1.00); Monocytes % (A) 9.5 %; NRBC Per 100 WBC 0 X 10*3/uL (0.00-0.01); Neutrophils # (A) 10.34 X 10*3/uL (1.80-7.70); Neutrophils % (A) 76.9 %; Platelet Count 193 X 10*3/uL (140-440); RBC 3.27 X 10*6/uL (4.10-5.20); WBC 13.45 X 10*3/uL (4.50-10.00)
--- NOTE | 2023-12-15 10:05 | P.CONS ---
History of Present Illness - Reason for Consult Consult date: 12/15/23 Past Medical History Past Medical History: Diabetes Mellitus, GI Bleed, Hypertension, Osteoarthritis (OA), Skin Disorder Additional Past Medical History / Comment(s): BLOOD IN STOOL/RECTUM. per old hx- anemia, uti, PAST HIGH CHOLESTEROL - NO LONGER A PROBLEM. cyst on right kidney. Hidradenitis suppurativa with occasional flare-ups. History of Any Multi-Drug Resistant Organisms: None Reported Past Surgical History: Adenoidectomy, Appendectomy, Bladder Surgery, Breast Surgery, Heart Catheterization, Hysterectomy, Orthopedic Surgery, Tonsillectomy Additional Past Surgical History / Comment(s): OVARIAN CYSTS/endometriosis- hysterectomy. Right ELBOW SURG for tendonitis, 2 TRIGGER FINGERS. colonoscopy. egd. rt carpal tunnel release. katelyn excisional breast biopsies-NEG, d&c, heart cath 09-07-10 normal with ef 60%. CYSTOCELE REPAIR. Past Anesthesia/Blood Transfusion Reactions: Motion Sickness, Postoperative Nausea & Vomiting (PONV) Additional Past Anesthesia/Blood Transfusion Reaction / Comm: no blood reaction. no problem with propofol during colonoscopy Past Psychological History: No Psychological Hx Reported Additional Psychological History / Comment(s): pt lives in own home with spouse, is independant, used to work as cloth presser in factory. Smoking Status: Former smoker Past Alcohol Use History: None Reported Additional Past Alcohol Use History / Comment(s): STARTED SMOKING AT AGE 9- SMOKED 1 PPD, QUIT Past Drug Use History: None Reported - Past Family History Mother Family Medical History: Dementia Additional Family Medical History / Comment(s): ALZHEIMERS Father Family Medical History: Diabetes Mellitus, Myocardial Infarction (MT), Renal Disease Brother(s) Family Medical History: Pulmonary Embolus Medications and Allergies Home Medications Medication Instructions Recorded Confirmed Type Aspirin 162 tab PO HS 11/20/14 12/10/23 History Cetirizine HCl [Zyrtec] 10 mg PO HS 11/20/14 12/10/23 History Calcium Carbonate [Calcium] 1,200 mg PO HS 07/15/20 12/10/23 History Cholecalciferol [Vitamin D3 (25 50 mcg PO DAILY 12/02/20 12/10/23 History Mcg = 1000 Iu)] Losartan Potassium 50 mg PO DAILY 12/02/20 12/14/23 History Prolia Injection 1 dose SQ Q180D 12/02/20 12/10/23 History hydroCHLOROthiazide 12.5 mg PO DAILY 12/02/20 12/10/23 History metFORMIN HCL 1,000 mg PO BID 04/20/23 12/10/23 History Aspirin 81 mg PO BID #60 tab 12/14/23 Rx Diclofenac Sodium [Voltaren] 75 mg PO BID #60 tab 12/14/23 Rx Docusate [Colace] 100 mg PO BID #60 capsule 12/14/23 Rx HYDROcodone/APAP 5-325MG [[place] 1 - 2 tab PO Q6HR PRN #32 tab 12/14/23 Rx 5-325] Omeprazole 40 mg PO DAILY #30 cap 12/14/23 Rx Doxycycline Monohydrate 100 mg PO BID #28 cap 12/15/23 Rx Allergies Allergy/AdvReac Type Severity Reaction Status Date / Time adhesive Allergy Itching, Verified 12/10/23 12:23 RASH metoprolol Allergy Unknown Verified 12/10/23 12:23 Physical Exam Vitals: Vital Signs Temp Pulse Resp BP Pulse Ox 12/15/23 08:04 97.2 F L 84 16 111/65 94 L 12/15/23 02:00 98.5 F 76 16 129/67 94 L 12/14/23 20:00 97.6 F 60 16 136/83 95 12/14/23 14:18 97.5 F L 71 16 138/72 96 12/14/23 14:02 58 L 16 132/61 96 12/14/23 13:28 61 16 139/63 95 12/14/23 12:49 65 16 130/60 95 12/14/23 12:20 69 16 128/58 96 12/14/23 12:14 54 L 16 117/58 96 12/14/23 12:00 53 L 16 131/62 96 12/14/23 11:31 59 L 16 132/60 95 12/14/23 11:19 55 L 16 132/60 95 12/14/23 10:55 76 16 124/60 94 L 12/14/23 10:22 60 16 140/65 97 12/14/23 10:07 55 L 16 141/63 98 Intake and Output 12/14/23 12/15/23 12/15/23 22:59 06:59 14:59 Other: Voiding Method Toilet # Voids 2 4 Results CBC & Chem 7: 12/15/23 06:03 Labs: Abnormal Lab Results - Last 24 Hours (Table) 12/14/23 12/14/23 12/14/23 Range/Units 11:22 12:18 15:17 WBC (4.50-10.00) X 10*3/uL RBC (4.10-5.20) X 10*6/uL Hgb (12.0-15.0) g/dL Hct (37.2-46.3) % Neutrophils # (1.80-7.70) X 10*3/uL Monocytes # (0.20-1.00) X 10*3/uL Eosinophils # (0.04-0.35) X 10*3/uL POC Glucose (mg/dL) 274 H 227 H 172 H (70-110) mg/dL 12/14/23 12/15/23 12/15/23 Range/Units 19:45 06:03 06:47 WBC 13.45 H (4.50-10.00) X 10*3/uL RBC 3.27 L (4.10-5.20) X 10*6/uL Hgb 9.5 L (12.0-15.0) g/dL Hct 28.6 L (37.2-46.3) % Neutrophils # 10.34 H (1.80-7.70) X 10*3/uL Monocytes # 1.28 H (0.20-1.00) X 10*3/uL Eosinophils # 0 L (0.04-0.35) X 10*3/uL POC Glucose (mg/dL) 253 H 142 H (70-110) mg/dL
== END 2023-12-15 10:20 | disposition home health service (06) ==
LOC: OR 05:44 → 4SSUR 09:25 → OR 12-15 10:20
PROVIDERS: ATTEND Orthopaedic Surgery
DX: M16.12 Unilateral primary osteoarthritis, left hip (principal); G89.18 Other acute postprocedural pain; I10 Essential (primary) hypertension; E78.5 Hyperlipidemia, unspecified; E11.9 Type 2 diabetes mellitus without complications; M19.90 Unspecified osteoarthritis, unspecified site; F10.90 Alcohol use, unspecified, uncomplicated; Z90.49 Acquired absence of other specified parts of digestive tract; Z95.5 Presence of coronary angioplasty implant and graft; Z90.710 Acquired absence of both cervix and uterus; Z79.82 Long term (current) use of aspirin; Z79.84 Long term (current) use of oral hypoglycemic drugs; Z79.899 Other long term (current) drug therapy
CPT/HCPCS: 27130; 97161; 85025; 73501; 64999; J2250; J1100; J0690; J2405 ×2; J3010; J3490; J1885; J1170; 64447

== ENCOUNTER → 2024-08-28 | Outpatient (CLI) | payer MEDICARE, OTHER ==
--- NOTE | 2024-08-29 08:06 | BD ---
EXAMINATION TYPE: Axial Bone Density DATE OF EXAM: 08/28/2024 CLINICAL HISTORY: 69 years old Female. ICD-10 CODE: M81.0 AGE-RELATED OSTEOPOROSIS W/O CURRENT PATHO LO , Additional History: Height: 64 Weight: 137.9 FRAX RISK QUESTIONS: Alcohol (3 or more units per day): no Family History (Parent hip fracture): no Glucocorticoids (More than 3mos): no (Ex: prednisone, prednisolone, methylprednisolone, dexamethasone, and hydrocortisone). History of Fracture in Adulthood: no Secondary Osteoporosis: 1. Type 1 Diabetes: no 2. Hyperthyroidism: no 3. Menopause before 45: yes 4. Malnutrition: no 5. Chronic liver disease: no Rheumatoid Arthritis: no Current Tobacco Use: no RISK FACTORS HISTORY OF: Surgery to Spine/Hip(right/left)/Wrist (right/left): Left hip replaced When: 2023 MEDICATIONS: Osteoporosis Medications: prolia injection How Lon years EXAM MEASUREMENTS: Bone mineral densitometry was performed using the EMUZE System. Bone mineral density as measured about the Lumbar spine is: ----- L1-L4(G/cm2): 0.952 T Score Values are as follows: ----- L1: -2.2 ----- L2: -2.3 ----- L3: -1.9 ----- L4: -1.5 ----- L1-L4: -1.9 Z Score Values are as follows: ----- L1: -0.4 ----- L2: -0.5 ----- L3: -0.1 ----- L4: 0.3 ----- L1-L4: -0.1 Bone mineral density has: increased 4.6 % since study of: 06.23.2022 Bone mineral density about the R hip (g/cm2): 0.794 T Score values are as follows: -----R Neck: -1.8 -----R Total: -1.7 Z Score values are as follows: -----R Neck: 0.0 -----R Total: -0.1 Bone mineral density has: increased 3.0 % since study of: 06.23.2022 FRAX%s: The graph provided illustrates a 11.0% chance for a major osteoporotic fx and a 2.1% chance f or the hips probability for fx in 10 years time. IMPRESSION: Osteopenia (T Score between -2.5 and -1). There is slightly increased risk of fracture and the patient may be considered for treatment. Re-Screen 2-5 years. NOTE: T-SCORE=SD OF THE YOUNG ADULT MEAN. [facility], , 08/29/2024 8:04 AM
== END | disposition home or self-care (01) ==
LOC: RADBDWWP 07:39
PROVIDERS: ATTEND Internal Medicine Endocrinology, Diabetes & Metabolism
DX: M81.0 Age-related osteoporosis without current pathological fracture (principal); M85.89 Other specified disorders of bone density and structure, multiple sites; Z78.0 Asymptomatic menopausal state
CPT/HCPCS: 77080

== ENCOUNTER 2025-02-11 09:39 | Day surgery (SDC) | payer MEDICARE, OTHER ==
[2025-02-11 09:56] VITALS: TEMP 97
[2025-02-11 10:07] LABS: Glucose,Whole Blood 137 mg/dL (70-110)
[2025-02-11] MEDS: IV FLUID CONTINUATION 1,000 ML IV ONE ×2 (10:18→10:39)
[2025-02-11] MEDS: LACTATED RINGERS 1,000 ML IV SCH (10:20)
[2025-02-11] MEDS ORDERED: GLYCOPYRROLATE 0.2 MG/ML 2 ML VIAL ONE (10:41)
[2025-02-11] MEDS ORDERED: PROPOFOL 10 MG/ML 20 ML VIAL IV ONE (10:41)
--- NOTE | 2025-02-11 11:04 | P.PCN ---
Date of Procedure: 02/11/25 Procedure(s) Performed: BRIEF HISTORY: Patient is a 69-year-old pleasant white female scheduled for an elective colonoscopy as a part of evaluation of chronic diarrhea and rectal bleeding for the last 1 month duration. She has been having 10-12 small frequent bowel movements with blood and mucus in the stool. PROCEDURE PERFORMED: Colonoscopy with biopsy. PREOPERATIVE DIAGNOSIS: Diarrhea and rectal bleeding of 1 month duration. IV sedation per Anesthesia. PROCEDURE: After informed consent was obtained, the patient, was brought into the endoscopy unit. IV sedation was administered by Anesthesia under continuous monitoring. Digital rectal examination was normal. Initially the Olympus CF-160 flexible video colonoscope was then inserted in the rectum, gradually advanced into the cecum without any difficulty. Careful examination was performed as the scope was gradually being withdrawn. Ileocecal valve and the appendiceal orifice were visualized and appeared normal. Prep was excellent. Mucosa of the cecum, ascending colon, transverse colon, descending colon, appear normal. Mucosa of the sigmoid colon, and rectum had erythema, friability, granularity and with exudates and spontaneous oozing consistent with active proctosigmoiditis and multiple biopsies were done from this area . Retroflexion was performed in the rectum and no lesions were seen. The patient tolerated the procedure well. IMPRESSION: Mucosal friability, edema erythema and granularity with spontaneous oozing involving the rectum; up to 35 cm from the anal verge consistent with proctosigmoiditis, status post multiple biopsies Rest of the colon appeared normal Small internal hemorrhoids RECOMMENDATIONS: Findings of this examination were discussed with the patient as well as her family. She was advised to follow-up with the biopsy results. She will be seen in the office in 1 week..
[2025-02-11 11:24] VITALS: BP 147/75; PULSE 59; RESP 16
== END 2025-02-11 11:46 | disposition home or self-care (01) ==
LOC: ORWHC2ENDO 09:39
PROVIDERS: ATTEND Internal Medicine Gastroenterology
DX: K52.9 Noninfective gastroenteritis and colitis, unspecified (principal); K64.8 Other hemorrhoids; I10 Essential (primary) hypertension; E78.5 Hyperlipidemia, unspecified; E11.9 Type 2 diabetes mellitus without complications; M19.90 Unspecified osteoarthritis, unspecified site; Z79.84 Long term (current) use of oral hypoglycemic drugs; Z88.8 Allergy status to other drugs, medicaments and biological substances; Z79.899 Other long term (current) drug therapy
CPT/HCPCS: 88305; 45380; J2704; J1596